=== PATIENT | male | born 1965 | race Caucasian/White ===

== ENCOUNTER 2018-05-11 20:39 | Emergency (ER) | payer SELFPAY ==
[2018-05-11] MEDS ORDERED: SODIUM CHLORIDE 1,000 ML IV STA (20:44)
[2018-05-11 20:46] VITALS: BP 139/63; PULSE 70; TEMP 98.8; BMI 26.6
--- NOTE | 2018-05-11 20:46 | PDOC ---
Rapid Medical Evaluation Chief Complaint: Pain Time Seen by Provider: 05/11/18 20:41 Medical Evaluation: 05/11/18 20:41 c/o LLQ x 1 hour with left flank pain. denies NVD, fever/ chills PE: patient alert ox3. + left CVA tenderness A: flank pain P; cbc cmp spiral CT ua patient to the ER for further management
[2018-05-11] MEDS ORDERED: morphine CARPU-JECT 4 MG/1 ML DISP.SYRIN IVPUSH ONE ×2 (20:56→22:27)
[2018-05-11] MEDS ORDERED: KETOROLAC TROMETHAMINE 30 MG/1 ML VIAL IVPUSH ONE (21:00)
[2018-05-11] MEDS ORDERED: morphine SULFATE 4 MG/ML VIAL ONE ×2 (21:05→22:38)
[2018-05-11] MEDS ORDERED: KETOROLAC TROMETHAMINE 30 MG/1 ML VIAL ONE (21:05)
[2018-05-11 21:16] LABS: BASO % 0.8 % (0-2.0); EOS % 5.1 % (0-4.5); HEMATOCRIT 43.2 % (35.4-49); HEMOGLOBIN 14.4 GM/dL (11.7-16.9); LYMPH % 29.5 % (8-40); MCHC 33.3 g/dl (32.0-35.9); MEAN CELL VOLUME 84.2 fl (80-96); MEAN PLT VOLUME 9.2 fl (7.5-11.1); MONO % 6.7 % (3.8-10.2); NEUT % 57.9 % (42.8-82.8); PLATELET COUNT 275 K/MM3 (134-434); RBC 5.13 M/mm3 (4.00-5.60); WHITE BLOOD COUNT 12.1 K/mm3 (4.0-10.0)
--- NOTE | 2018-05-11 21:18 | PDOC ---
Attending Attestation - Resident Resident Name: JoselitoLeroy beach - ED Attending Attestation I have performed the following: I have examined & evaluated the patient, The case was reviewed & discussed with the resident, I agree w/resident's findings & plan, Exceptions are as noted <Felix Dyer - Last Filed: 05/11/18 21:18> - HPI HPI: 05/11/18 21:35 The patient is a 53 year old male with significant past medical history of kidney stones who presents to the emergency department with left lower quadrant pain for one hour. The patient reports that his pain radiates from his left lower back anteriorly to his left lower quadrant and inferiorly to his groin and testicle. He reports that when he had kidney stones in the past (4 years ago ) he passed them in his urine. He denies nausea, vomiting, fever, chills, and diarrhea. - Physicial Exam PE: 05/11/18 21:35 GENERAL: Well-appearing, well-nourished. No apparent distress. HEENT: Normocephalic, atraumatic. PERRL, EOM intact. CARDIOVASCULAR: Normal S1, S2. Regular rate and rhythm. PULMONARY: Clear to auscultation bilaterally. ABDOMEN: (+) Tenderness on palpation, no guarding or rebound. EXTREMITIES: Normal ROM in all four extremities. No gross deformities. SKIN: Warm, dry. No rash NEUROLOGICAL: No focal neurological deficits. - Medical Decision Making 05/11/18 21:36 Documentation prepared by Carson Mae, acting as medical insurance claims specialist for Felix Dyer DO. <Carson Mae - Last Filed: 05/11/18 21:58>
--- NOTE | 2018-05-11 21:35 | PDOC ---
History of Present Illness - General Chief Complaint: Pain Stated Complaint: PAIN IN STOMACH Time Seen by Provider: 05/11/18 20:41 History Source: Patient Exam Limitations: No Limitations - History of Present Illness Initial Comments: 05/11/18 21:34 Patient is a 53M with history of kidney stones here today complaining of left sided abdominal pain that radiates from his groin to his left flank. Denies fevers, chills, nausea, vomiting. Denies pain with urination. No history of abdominal surgery. Patient state that he just can't get comfortable. Patient complains of pain in his testicle. Denies drug use, endorses social alcohol use , no history of sti, Past History - Past Medical History Allergies/Adverse Reactions: Allergies Allergy/AdvReac Type Severity Reaction Status Date / Time No Known Allergies Allergy Verified 05/11/18 20:45 Home Medications: Ambulatory Orders NK [No Known Home Medication] 05/11/18 COPD: No - Suicide/Smoking/Psychosocial Hx Smoking History: Never smoked Have you smoked in the past 12 months: No Information on smoking cessation initiated: No Hx Alcohol Use: No Drug/Substance Use Hx: No Substance Use Type: None Review of Systems - Review of Systems Able to Perform ROS?: Yes Comments:: 05/11/18 21:36 GENERAL/CONSTITUTIONAL: No fever or chills. No weakness. HEAD, EYES, EARS, NOSE AND THROAT: No change in vision. No sore throat. CARDIOVASCULAR: No chest pain or shortness of breath RESPIRATORY: No cough, wheezing, or hemoptysis. GASTROINTESTINAL: No nausea, vomiting, diarrhea or constipation. GENITOURINARY: No dysuria, frequency, or change in urination. MUSCULOSKELETAL: No joint or muscle swelling or pain. No neck or back pain. SKIN: No rash NEUROLOGIC: No headache, vertigo, loss of consciousness, or change in strength/ sensation. HEMATOLOGIC/LYMPHATIC: No anemia, easy bleeding, or history of blood clots. ALLERGIC/IMMUNOLOGIC: No hives or skin allergy. *Physical Exam - Vital Signs Last Vital Signs Temp Pulse Resp BP Pulse Ox 98.8 F 70 24 139/63 100 05/11/18 20:42 05/11/18 20:42 05/11/18 20:42 05/11/18 20:42 05/11/18 20:42 - Physical Exam Comments: 05/11/18 21:36 GENERAL: Awake, alert, and fully oriented, moving around bed, uncomfortable HEAD: No signs of trauma, normocephalic, atraumatic EYES: PERRLA, EOMI, sclera anicteric, conjunctiva clear ENT: Auricles normal inspection, hearing grossly normal, nares patent, oropharynx clear without exudates. Moist mucosa NECK: Normal ROM, supple, no lymphadenopathy, JVD, or masses LUNGS: No distress, speaks full sentences, clear to auscultation bilaterally HEART: Regular rate and rhythm, normal S1 and S2, no murmurs, rubs or gallops, peripheral pulses normal and equal bilaterally. ABDOMEN: Soft, tender in left lower quadrant. No guarding, no rebound. No masses EXTREMITIES: Normal inspection, Normal range of motion, no edema. No clubbing or cyanosis. NEUROLOGICAL: Cranial nerves II through XII grossly intact. Normal speech, normal gait, no focal sensorimotor deficits SKIN: Warm, Dry, normal turgor, no rashes or lesions noted. : Normal appearing external genitalia, nontender testicle, no signs of torsion , cremaster intact, pain not improved with rotation. ED Treatment Course - LABORATORY CBC & Chemistry Diagram: 05/11/18 21:10 05/11/18 21:10 - ADDITIONAL ORDERS Additional order review: 05/11/18 21:10 RBC 5.13 MCV 84.2 MCHC 33.3 RDW 13.0 MPV 9.2 Neutrophils % 57.9 Lymphocytes % 29.5 Monocytes % 6.7 Eosinophils % 5.1 H Basophils % 0.8 - RADIOLOGY Radiology Studies Ordered: Category Date Time Status SCROTUM AND CONTENTS US [US] Stat Ultrasound 05/11/18 21:14 Ordered - Medications Given in the ED: ED Medications Discontinued Medications Generic Name Dose Route Start Last Admin Trade Name Freq PRN Reason Stop Dose Admin Ketorolac Tromethamine 30 mg 05/11/18 21:00 05/11/18 21:27 Toradol Injection - IVPUSH 05/11/18 21:01 30 mg ONCE ONE Administration Morphine Sulfate 4 mg 05/11/18 20:56 05/11/18 21:26 Morphine Injection - IVPUSH 05/11/18 20:57 4 mg ONCE ONE Administration Medical Decision Making - Medical Decision Making 05/11/18 21:37 Patient is 53M here today with abdominal pain. Vital signs normal and stable. Differential is weighted towards kidney stone, but also considering UTI and testicular torsion. Working up with cbc, cmp, ua, spiral ct and ultrasound. 05/11/18 23:54 Laboratory Tests 05/11/18 05/11/18 05/11/18 21:10 21:10 22:45 WBC 12.1 H Hgb 14.4 Plt Count 275 Potassium 3.0 L Urine Blood 3+ H Urine WBC (Auto) None Urine RBC (Auto) 127 CBC normal. UA shows evidence of blood. K low, given 40mg k-dur. CT shows kidney stone. US shows no torsion or evidence of orchitis. Patient's pain has resolved. Discharged with return precautions. *DC/Admit/Observation/Transfer Diagnosis at time of Disposition: Kidney stone - Discharge Dispostion Disposition: HOME Condition at time of disposition: Good Decision to Admit order: No - Referrals Referrals: Jan Garcia MD [Staff Physician] - - Patient Instructions Printed Discharge Instructions: DI for Kidney Stones Additional Instructions: Please return if you have any new, worsening or concerning symptoms. Please follow up with your PCP and urology in the next week. - Post Discharge Activity
[2018-05-11 21:49] LABS: ALBUMIN 4.3 g/dl (3.4-5.0); ALK PHOS 121 U/L (45-117); ANION GAP 12 (8-16); BILIRUBIN,TOTAL 0.4 mg/dL (0.2-1.0); BLOOD UREA NITROGEN 18 mg/dL (7-18); CALCIUM 8.9 mg/dL (8.5-10.1); CHLORIDE 106 mmol/L (98-107); CO2 23 mmol/L (21-32); CREATININE 1.1 mg/dL (0.7-1.3); GLUCOSE,RANDOM 117 mg/dL (74-106); SGOT/AST 27 U/L (15-37); SGPT/ALT 54 U/L (12-78); SODIUM 141 mmol/L (136-145); TOT PROT 8.2 g/dl (6.4-8.2)
[2018-05-11 23:08] LABS: URINE APPEARANCE CLEAR; URINE BILIRUBIN NEGATIVE (<2.0 mg/dL); URINE COLOR YELLOW; URINE GLUCOSE (UA) NEGATIVE (NEGATIVE); URINE KETONE 1+ (NEGATIVE); URINE LEUK ESTERASE NEGATIVE (NEGATIVE); URINE NITRITE NEGATIVE (NEGATIVE); URINE PROTEIN NEGATIVE (NEGATIVE); URINE UROBILINOGEN NEGATIVE mg/dL (0.2-1.0)
[2018-05-11 23:30] LABS: EPI CELLS RARE /HPF (FEW); URINE MUCUS FEW
[2018-05-11] MEDS ORDERED: POTASSIUM CHLORIDE TABS 20 MEQ TABLET.ER (FP) PO ONE ×2 (23:36)
== END 2018-05-12 00:12 | disposition home or self-care (01) ==
LOC: JER 20:39
PROC: 3E033NZ Introduction of Analgesics, Hypnotics, Sedatives into Peripheral Vein, Percutaneous Approach (ICD-10-PCS; principal; 2018-05-11)
PROC: 3E0333Z Introduction of Anti-inflammatory into Peripheral Vein, Percutaneous Approach (ICD-10-PCS; 2018-05-11)
DX: N20.0 Calculus of kidney (principal); Z87.442 Personal history of urinary calculi
CPT/HCPCS: 36415; 74176; 76870-TC; 80053; 81003; 81015; 85025; 87086; 99282-25; J7030